=== PATIENT | male | born 1970 | race Caucasian/White ===

== ENCOUNTER → 2016-11-05 | Outpatient (REF) | payer OTHER ==
[~2016-11-05] MED LIST: OXYC1TAB23 PO
[2016-11-05 13:46] LABS: MEAN CORPUSCULAR HEMOGLOBIN 32.3 pg (27.0-33.0); MEAN CORPUSCULAR VOLUME 89.8 fl (80.0-96.0); RED CELL DISTRIBUTION WIDTH 11.4 % (11.5-14.5); WHITE BLOOD COUNT 5.1 K/mm3 (4.0-10.0)
[2016-11-05 13:48] LABS: ALBUMIN 4.1 GM/DL (3.2-5.2); ALBUMIN/GLOBULIN RATIO 1.52 (1.00-1.93); ALKALINE PHOSPHATASE 67 U/L (45-117); ALT/SGPT 27 U/L (12-78); ANION GAP 7 MEQ/L (8-16); AST/SGOT 16 U/L (15-37); BILIRUBIN,TOTAL 0.6 MG/DL (0.2-1.0); BLOOD UREA NITROGEN 16 MG/DL (7-18); CALCIUM LEVEL 9.2 MG/DL (8.5-10.1); CARBON DIOXIDE LEVEL 31 MEQ/L (21-32); CHLORIDE LEVEL 104 MEQ/L (98-107); CREATININE FOR GFR 0.98 MG/DL (0.70-1.30); GLOMERULAR FILTRATION RATE > 60.0 (>60); GLUCOSE, FASTING 86 MG/DL (70-105); POTASSIUM SERUM 4.4 MEQ/L (3.5-5.1); SODIUM LEVEL 142 MEQ/L (136-145); TOTAL PROTEIN 6.8 GM/DL (6.4-8.2)
[2016-11-06 14:18] LABS: Lyme Disease IgG/IgM Antibodie <0.91 ISR (0.00-0.90); Lyme Disease IgM Ab Quantitati <0.80 index (0.00-0.79)
== END ==
LOC: M SFHCPLAZ 11:06
PROVIDERS: ATTEND Internal Medicine Infectious Disease
DX: M19.90 Unspecified osteoarthritis, unspecified site (principal); N30.10 Interstitial cystitis (chronic) without hematuria; R10.2 Pelvic and perineal pain

== ENCOUNTER → 2016-11-19 | Outpatient (REF) | payer OTHER | LOC: M SFHCPLAZ 12:52 | PROVIDERS: ATTEND Internal Medicine Infectious Disease | DX: N30.10 Interstitial cystitis (chronic) without hematuria (principal) ==

== ENCOUNTER → 2017-12-29 | Outpatient (CLI) | payer OTHER | LOC: M WUC 13:40 | DX: J11.1 Influenza due to unidentified influenza virus with other respiratory manifestations (principal) | CPT/HCPCS: 71046 ==

== ENCOUNTER 2018-03-25 09:01 | Emergency (ER) | payer OTHER ==
[2018-03-25] MEDS: ONDANSETRON 4MG/2ML VIAL (J2405) IV (09:23)
[2018-03-25] MEDS: NS 1,000 ML IV (09:23)
[2018-03-25] MEDS: MORPHINE 4 MG/ML 1ML VIAL/SYRINGE (J2270) IV ×3 (09:24→12:20)
[2018-03-25 09:31] LABS: BASO # 0.1 10^3/uL (0.0-0.2); BASO % 1.3 % (0.0-1.0); EOS # 0.5 10^3/uL (0.0-0.50); EOS % 7.6 % (0.0-3.0); HEMATOCRIT 45.9 % (42.0-52.0); IMMATURE GRANULOCYTE % 0.3 % (0-3.0); LYMPH % 14.8 % (24.0-44.0); MEAN CORPUSCULAR HEMOGLOBIN 31.3 pg (27.0-33.0); MEAN CORPUSCULAR HGB CONC 34.9 g/dl (32.0-36.5); MEAN CORPUSCULAR VOLUME 89.6 fl (80.0-96.0); MONO # 0.6 10^3/uL (0.0-0.8); MONO % 8.8 % (0.0-5.0); NEUTROPHILS # 4.7 10^3/uL (1.8-7.7); NEUTROPHILS % 67.2 % (36.0-66.0); PLATELET COUNT, AUTOMATED 310 10^3/uL (150-450); RED BLOOD COUNT 5.12 10^6/uL (4.30-6.10); RED CELL DISTRIBUTION WIDTH 11.7 % (11.5-14.5)
[2018-03-25 09:41] LABS: INR 0.94; PROTHROMBIN TIME 12.6 SECONDS (12.4-14.5)
[2018-03-25 09:42] LABS: PARTIAL THROMBOPLASTIN TIME 28.6 SECONDS (26.8-37.9)
[2018-03-25 09:49] LABS: ALBUMIN 3.8 GM/DL (3.2-5.2); ALBUMIN/GLOBULIN RATIO 1.06 (1.00-1.93); ALKALINE PHOSPHATASE 72 U/L (45-117); ALT/SGPT 34 U/L (12-78); ANION GAP 8 MEQ/L (8-16); AST/SGOT 16 U/L (7-37); BILIRUBIN,DIRECT 0.1 MG/DL (0.0-0.2); BILIRUBIN,TOTAL 0.6 MG/DL (0.2-1.0); BLOOD UREA NITROGEN 18 MG/DL (7-18); CALCIUM LEVEL 8.8 MG/DL (8.5-10.1); CARBON DIOXIDE LEVEL 26 MEQ/L (21-32); CHLORIDE LEVEL 108 MEQ/L (98-107); GLOMERULAR FILTRATION RATE > 60.0 (>56); GLUCOSE, FASTING 108 MG/DL (70-100); LIPASE 80 U/L (73-393); POTASSIUM SERUM 4.4 MEQ/L (3.5-5.1); SODIUM LEVEL 142 MEQ/L (136-145); TOTAL PROTEIN 7.4 GM/DL (6.4-8.2)
[2018-03-25 09:51] LABS: LACTIC ACID SEPSIS PROTOCOL 1.8 MMOL/L (0.4-2.0)
[2018-03-25] MEDS: KETOROLAC 30 MG/ML VIAL (J1885) IV (10:15)
[2018-03-25 11:21] LABS: KETONE, URINE AUTO RFX NEGATIVE (NEGATIVE); LEUKOCYTE ESTERASE UR AUTO RFX NEGATIVE (NEGATIVE); MUCUS, URINE RFX SMALL (NEGATIVE); NITRITE, URINE AUTO RFX NEGATIVE (NEGATIVE); RBC, URINE AUTO RFX 44 /HPF (0-3); SPECIFIC GRAVITY UR AUTO RFX 1.008 (1.002-1.035); SQUAM EPITHELIAL CELL UR AURFX 0 /HPF (0-6); WBC, URINE AUTO RFX 2 /HPF (0-3)
[2018-03-25] MEDS: PERCOCET 5MG/325MG TAB PO (12:20)
== END 2018-03-25 13:15 | disposition home or self-care (01) ==
LOC: M ED 09:01
DX: N23 Unspecified renal colic (principal); R93.41 Abnormal radiologic findings on diagnostic imaging of renal pelvis, ureter, or bladder; Z79.899 Other long term (current) drug therapy; Z91.030 Bee allergy status
CPT/HCPCS: J2270

== ENCOUNTER → 2018-03-27 | Outpatient (REF) | payer OTHER | LOC: M LAB REF 12:17 | DX: R31.9 Hematuria, unspecified (principal) ==

== ENCOUNTER → 2019-11-30 | Outpatient (REF) | payer OTHER ==
[~2019-11-30] MED LIST changes: +FLOM0.4C39 PO; +HYDR-3715 PO; +IBUP-1022 PO; +MYRB25TA PO
[2019-11-30 12:25] LABS: APPEARANCE, URINE CLEAR (CLEAR); BACTERIA, URINE AUTO NEGATIVE (NEGATIVE); BILIRUBIN, URINE AUTO NEGATIVE (NEGATIVE); BLOOD, URINE BLOOD 1+ (NEGATIVE); COLOR, URINE YELLOW (YELLOW); GLUCOSE, URINE (UA) AUTO NEGATIVE (NEGATIVE); KETONE, URINE AUTO TRACE mg/dL (NEGATIVE); LEUKOCYTE ESTERASE, URINE AUTO NEGATIVE (NEGATIVE); MUCUS, URINE SMALL (NEGATIVE); NITRITE, URINE AUTO NEGATIVE (NEGATIVE); PROTEIN, URINE AUTO NEGATIVE (NEGATIVE); RBC, URINE AUTO 1 /HPF (0-3); SPECIFIC GRAVITY URINE AUTO 1.021 (1.002-1.035); SQUAMOUS EPITHELIAL CELL UR AU 0 /HPF (0-6); UROBILINOGEN, URINE AUTO 0.2 mg/dL (0.0-2.0); WBC, URINE AUTO 1 /HPF (0-3)
== END ==
LOC: M LAB REF 11:47
PROVIDERS: ATTEND Urology
DX: N30.80 Other cystitis without hematuria (principal); R31.29 Other microscopic hematuria

== ENCOUNTER → 2020-11-14 | Outpatient (CLI) | payer OTHER ==
--- NOTE | 2020-11-15 10:05 | REP ---
INDICATION: DORSALGIA COMPARISON: None. TECHNIQUE: AP, lateral, bilateral oblique, and coned-down views of the lumbar spine. FINDINGS: Alignment and lordosis maintained. No acute fracture/compression injury or subluxation. Moderate degenerative changes include endplate sclerosis, marginal spurring and hypertrophic facet changes primarily involving L4-5 and L5-S1. Remainder of the examination is essentially age-appropriate. IMPRESSION: Moderate focal degenerative spondylosis at L4-5 and L5-S1. <Electronically signed by Spenser Paige > 11/15/20 1002
== END ==
LOC: M WUC 13:56
PROVIDERS: ATTEND Internal Medicine
DX: M47.816 Spondylosis without myelopathy or radiculopathy, lumbar region (principal); M47.817 Spondylosis without myelopathy or radiculopathy, lumbosacral region

== ENCOUNTER → 2021-06-19 | Outpatient (CLI) | payer OTHER ==
[2021-06-21 23:09] LABS: PSA TOTAL 0.6 ng/mL (0.0-4.0)
== END ==
LOC: M WUC 13:06
PROVIDERS: ATTEND Urology
DX: Z12.5 Encounter for screening for malignant neoplasm of prostate (principal)

== ENCOUNTER → 2022-07-31 | Outpatient (CLI) | payer OTHER ==
[2022-08-02 13:08] LABS: PSA TOTAL 0.5 ng/mL (0.0-4.0)
== END ==
LOC: M WUC 13:11
PROVIDERS: ATTEND Urology
DX: Z12.5 Encounter for screening for malignant neoplasm of prostate (principal)

== ENCOUNTER → 2023-01-30 | Outpatient (CLI) | payer OTHER ==
[2023-01-30 15:01] LABS: BLOOD UREA NITROGEN 16 MG/DL (9-23); CARBON DIOXIDE LEVEL 30 MMOL/L (20-31); CHLORIDE LEVEL 106 MMOL/L (98-107); GLOMERULAR FILTRATION RATE > 60.0 (>56); GLUCOSE, FASTING 100 MG/DL (60-100); POTASSIUM SERUM 4.5 MMOL/L (3.5-5.1); SODIUM LEVEL 140 MMOL/L (136-145)
[2023-01-30 15:04] LABS: THYROID STIMULATING HORMONE 8.769 uIU/ML (0.55-4.78)
== END ==
LOC: M WUC 09:45
PROVIDERS: ATTEND Internal Medicine
DX: E03.9 Hypothyroidism, unspecified (principal); I10 Essential (primary) hypertension

== ENCOUNTER → 2024-06-22 | Outpatient (REF) | payer OTHER | LOC: M LAB REF 11:38 | PROVIDERS: ATTEND Nurse Practitioner Family | DX: R30.0 Dysuria (principal) ==

== ENCOUNTER → 2025-03-03 | Outpatient (REF) | payer OTHER ==
[~2025-03-03] MED LIST changes: -FLOM0.4C39 PO; +TAMS-18 PO
== END ==
LOC: M LABWUC 12:16
PROVIDERS: ATTEND Urology
DX: Z12.5 Encounter for screening for malignant neoplasm of prostate (principal)